=== PATIENT | female | born 1975 | race Caucasian/White ===

== ENCOUNTER 2020-12-02 11:55 | Emergency (ER) | payer OTHER ==
[2020-12-02 12:04] VITALS: BP 127/83; PULSE 68; TEMP 98; BMI 31.9
== END 2020-12-02 17:41 | disposition home or self-care (01) ==
LOC: JERFT 11:55
DX: M79.10 Myalgia, unspecified site (principal); V87.7XXA Person injured in collision between other specified motor vehicles (traffic), initial encounter; Y92.9 Unspecified place or not applicable
CPT/HCPCS: 72050-TC-FY; 72070-TC-FY; 99284-25